=== PATIENT | male | born 1990 | race Caucasian/White ===

== ENCOUNTER 2017-07-26 12:58 | Emergency (ER) | payer OTHER ==
[2017-07-26 13:01] VITALS: BP 153/94; PULSE 94; TEMP 97.8; BMI 24.0
[2017-07-26] MEDS ORDERED: KETOROLAC TROMETHAMINE 60 MG/2 ML VIAL IM ONE (13:54)
[2017-07-26] MEDS ORDERED: KETOROLAC TROMETHAMINE 60 MG/2 ML VIAL ONE (13:55)
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
== END 2017-07-26 14:37 | disposition home or self-care (01) ==
LOC: EDSEX 12:58 → JERFT 12:58
PROC: 3E0233Z Introduction of Anti-inflammatory into Muscle, Percutaneous Approach (ICD-10-PCS; principal; 2017-07-26)
DX: M54.41 Lumbago with sciatica, right side (principal)
CPT/HCPCS: 99281-25